=== PATIENT | female | born 1995 | race Caucasian/White ===

== ENCOUNTER 2017-02-24 01:23 | Emergency (ER) | payer SELFPAY ==
--- NOTE | ~2017-02-24 | US134 ---
[facility] A Service of [facility] RADIOLOGY TEXT RESULTS PATIENT: LORI PAEZ LOCATION: SED : [birth year] UNIT #: [id number] AGE: [address]: Lisandro Cain MD SEX: F ORDER DR: [id number] [place] [id number] E MR#: [id number] Acc #: [id number] NAME: LORI PAEZ : 1995 SEX: F STUDY DATE/TIME: 02/24/2017 3:27 UNIT: SED ROOM: STUDY DESCRIPTION: Transvaginal Attending Physician: Lisandro Cain M.D. Ordering Physician: Lisandro Cain M.D. Primary Care Physician: No Primary Care Physician MEDICAL IMAGING REPORT This report is preliminary unless electronic signature is present. EXAM Pelvic ultrasound INDICATION Vaginal bleeding for the past 3 hours. PROCEDURE Mireles-scale and Doppler imaging of the pelvis via transvaginal approach. COMPARISON None. FINDINGS Uterus anteverted and measures 8.4 x 4.2 x 4.9 cm. The endometrium is thickened up to 2.4 cm. There is what appears to be a gestational sac in the endometrial cavity that measures 1.8 x 1.4 x 0.9 cm consistent with a gestational age of 6 weeks and 5 days. No internal contents are seen. Unremarkable left ovary. Right ovary not seen. IMPRESSION What appears to be a gestational sac in the endometrial cavity but no internal contents. This could represent early or a blighted ovum. Recommend correlation with beta HCG levels and continued clinical follow up with repeat pelvic ultrasound as deemed clinically appropriate. Dictated by... Terry Malagon M.D. THIS IS AN ELECTRONICALLY VERIFIED REPORT Terry Malagon M.D. at 02/24/2017 10:24 PM EED/aa [facility] A Service [facility] RADIOLOGY TEXT RESULTS PATIENT: LORI PAEZ LOCATION: SED : 97 UNIT #: [id number] AGE: [address]: Lisandro Cain MD SEX: F ORDER DR: TD: 02/24/2017 08:01 JOB #: [id number] MEDICAL IMAGING REPORT Page 1 of 1
[2017-02-24] MEDS ORDERED: NO MEDICATIONS (01:57)
[2017-02-24 02:35] LABS: URINE SOURCE CLEAN CATCH
[2017-02-24 02:37] LABS: URINE APPEARANCE CLEAR; URINE BILIRUBIN NEG (NEG); URINE BLOOD 3+ (NEG); URINE COLOR YELLOW; URINE GLUCOSE NEG (NORM); URINE KETONE NEG (NEG); URINE LEUKOCYTE ESTERASE NEG (NEG); URINE NITRATE NEG (NEG); URINE PROTEIN NEG (NEG); URINE UROBILINOGEN 0.2 MG/DL (NORM)
[2017-02-24 02:39] LABS: MICRO INDICATED? YES
[2017-02-24 02:55] LABS: URINE RBC 100-200 /[HPF] (0-2)
[2017-02-24 02:56] LABS: CULTURE INDICATED? YES; URINE AMORPHOUS SEDIMENT AMORP URATES; URINE BACTERIA 2+ (NEG); URINE MUCUS PRESENT; URINE SQUAMOUS EPITHELIAL CELL FEW /[HPF]
== END 2017-02-24 04:26 | disposition home or self-care (01) ==
LOC: SED 01:23
PROVIDERS: Emergency Medicine
DX: O20.0 Threatened abortion (principal); Z3A.09 9 weeks gestation of pregnancy
CPT/HCPCS: 36415; 76830; 81003; 84702; 87086; 99284